=== PATIENT | male | born 1980 | race Caucasian/White ===

== ENCOUNTER 2016-06-19 06:14 | Day surgery (SDC) | payer BC, OTHER ==
--- NOTE | ~2016-06-19 | OP ---
Record Of Operation [facility] [address] [place]. [address] NAME: EMMA POLLOCK : 82 STATUS : REG [facility]#: [id number] AGE: 35 ADM/REG DATE : 06/19/16 MR#: [id number] REPORT SERV DATE: 06/19/16 DICTATED BY: ROGER BARR DATE: 06/19/16 REPORT STATUS : Draft TRANSCRIBED BY: SHARATH DATE: 06/19/16 DATE OF PROCEDURE: PREOPERATIVE DIAGNOSIS: Right kidney stone. POSTOPERATIVE DIAGNOSIS: Right kidney stone. PROCEDURE PERFORMED: Right extracorporeal shockwave lithotripsy renal stone, initial treatment. ANESTHESIA: Monitored anesthesia care. COMPLICATIONS: None. DRAINS: None. INDICATIONS: Mr. Pollock is a 35-year-old with recurrent nephrolithiasis, right-sided back pain for several months. CT scan shows a 6 mm right lower pole stone. It appears to be obstructing the lower pole calyx. He presents for ESWL. TECHNIQUE: Informed consent was obtained, he was brought to the operating room, monitored anesthesia care was administered. The right kidney stone was identified with biplanar fluoroscopy. A total of 2500 shocks were administered at 120 shocks per minute. There appeared to be good fragmentation of the stone. We will strain his urine and follow up in two weeks with a KUB. If he has passed fragments and pain persists then ureteroscopy would be considered. CARLOS/SHARATH Roger Barr M.D. / [id number] CC: Concetta Cross M.D.
[~2016-06-19 06:14] MED LIST: NORCO1 TA1 PO
[2016-06-19 07:16] LABS: BASOPHILS 0.2 %; BASOPHILS ABSOLUTE 0.02 10/3/uL (0.0-0.16); EOSINOPHILS 3.5 %; EOSINOPHILS ABSOLUTE 0.31 10/3/uL (0.0-0.53); HEMATOCRIT 40.1 % (40.0-51.0); HEMOGLOBIN 14.1 g/dL (13.6-17.8); IMMATURE GRANULOCYTES 0.1 %; IMMATURE GRANULOCYTES ABSOLUTE 0.01 10/3/uL (0.0-0.11); LYMPHOCYTES 42.4 %; LYMPHOCYTES ABSOLUTE 3.75 10/3/uL (0.67-4.30); MEAN CORPUS HGB CONC 35.2 g/dL (32.0-36.0); MEAN CORPUSCULAR HEMOGLOB 32.3 pg (26.0-34.0); MEAN CORPUSCULAR VOLUME 91.8 fL (80-100); MEAN PLATELET VOLUME 8.8 fL (9.2-13.0); MONOCYTES 7.9 %; NEUTROPHILS 45.9 %; NEUTROPHILS ABSOLUTE 4.06 10/3/uL (2.02-8.40); PLATELET COUNT 334 10/3/uL (150-400); RED CELL COUNT 4.37 10/6/uL (4.7-6.1); WHITE BLOOD CELLS 8.9 10/3/uL (4.5-10.5)
[2016-06-19 07:17] LABS: MANUAL DIFF NO %
[2016-06-19 07:17] LABS: ASCORBIC ACID (UR NOT ORDER) NEG (NEG); BILIRUBIN, URINE NEGATIVE (NEG); KETONE, URINE NEGATIVE (NEG); LEUKOCYTE ESTERASE(NOT OR NEG (NEG); WBC (NOT ORDERED) (RFLEX) 18 (0-5)
[2016-06-19 07:23] LABS: BUN (BLOOD UREA NITROGEN) 23 MG/DL (6-23); CHLORIDE, SERUM 103 MMOL/L (96-112); CO2 (CARBON DIOXIDE) 32 MMOL/L (24-34); GLUCOSE, SERUM 82 MG/DL (60-99); POTASSIUM, SERUM 3.6 MMOL/L (3.5-5.3); SODIUM, SERUM 140 MMOL/L (135-148)
[2016-06-19 07:25] LABS: CREATININE 1.06 MG/DL (0.70-1.30); GFR AFRICAN AMERICAN 106 ML/MIN (>=60); GFR NON AFRICAN AMERICAN 91 ML/MIN (>=60)
== END 2016-06-19 13:00 | disposition home or self-care (01) ==
LOC: SDC 06:14
PROVIDERS: Urology
PROC: 0TF3XZZ Fragmentation in Right Kidney Pelvis, External Approach (ICD-10-PCS; principal; 2016-06-19 08:00)
DX: N20.0 Calculus of kidney (principal); Z88.5 Allergy status to narcotic agent; Z88.8 Allergy status to other drugs, medicaments and biological substances; F17.200 Nicotine dependence, unspecified, uncomplicated; Z98.890 Other specified postprocedural states
CPT/HCPCS: 50590; 74000; 80048; 81001; 85025; J2250; J2405; J3010